=== PATIENT | male | born 1970 | race African-American/Black ===

== ENCOUNTER 2016-11-27 18:02 | Inpatient (IN) | payer OTHER ==
[~2016-11-27] VITALS: Ht 213.4 cm; Wt 104.5 kg
[~2016-11-27 18:02] MED LIST: ALL DAY ALLERGY10 M3 PO; AMBIEN10 MG PO; AMLODIPINE BESY10 MG PO; APRESOLINE10 MG PO; BACTRIM,SEPT1 TABLET PO; BISACODYL5 MG PO; CLEOCIN300 MG PO; COGENTIN0.5 MG PO; COLACE100 MG PO; COUMADIN,JANTO2.5 MG; CYCLOBENZAPRINE10 MG PO; DILAUDID1 MG/ML IV; DILAUDID2 MG PO; ENDOCET 5-3251 EACH PO; ESCITALOPRAM OX10 MG PO; ESCITALOPRAM OX20 MG PO; FENTANYL1 EAC5 TD; FOLIC ACID1 MG PO; GEODON40 MG PO; HEPARIN SO5000 UNITS SC; HYDRALAZINE HCL10 MG PO; ISOSORBIDE MONO30 MG PO; LEXAPRO10 MG PO; LOPRESSOR50 MG PO; LOSARTAN-HCTZ1 EAC1 PO; LOSARTAN-HCTZ1 EACH PO; LOVENOX40 MG/0.4 SC; LYRICA25 MG PO; LYRICA50 MG PO; LYRICA75 MG PO; MORPHINE SULFAT15 M1 PO; MULTIPLE VITAM1 EAC1 PO; NOHOMEMEDS; ONDANSETRON4 MG/2 ML IV; OXYCODONE H5 MG/5 ML PO; OXYCODONE HCL30 MG PO; OXYCODONE-APAP1 EACH PO; OXYCONTIN30 MG PO; PERCOCET 10/1 TABLET PO; PERCOCET 5/31 TABLET PO; PROMETHAZINE HC25 M1 PO; PROVENTIL HFA6.7 GM IH; QUETIAPINE FUM200 MG PO; QUETIAPINE FUM300 MG PO; QUETIAPINE FUMA50 MG PO; ROXICET 5-325500 ML PO; SANTYL30 GM TP; SENOKOT S,PE1 TABLET PO; SEROQUEL100 MG PO; SEROQUEL200 MG PO; SEROQUEL300 MG PO; SODIUM CHLOR1L 0.9 IV; THIAMINE HCL100 MG PO; TRAMADOL HCL50 MG PO; VITAMIN D5000 UNIT PO; WELLBUTRIN SR150 MG PO; ZESTRIL10 MG PO; ZOLPIDEM TARTRAT5 MG PO; bp med; morphine
[2016-11-27 18:56] LABS: HEMATOCRIT 42.9 % (38.0-50.0); MCH 32.2 PG (29.0-34.0); MCHC 34.5 G/DL (30.0-36.0); MCV 93.5 FL (86-99); MEAN PLAT.VOLUME 9.7 uM^3 (9.0-12.4); PLATELET COUNT 179 K/uL (156-360); RBC DIS.WIDTH-SD 41.2 % (39-53); RED BLOOD COUNT 4.59 M/uL (4.00-5.50); WHITE BLOOD COUNT 5.6 K/uL (4.1-10.2)
[2016-11-27 19:03] LABS: CHLORIDE 104 mEq/L (99-109); SODIUM 141 mEq/L (136-147)
[2016-11-27 19:04] LABS: GLUCOSE 75 mg/dL (70-99)
[2016-11-27 19:06] LABS: ANION GAP 22 MEQ/L (2-14)
[2016-11-27 19:08] LABS: GFR ESTIMATE (CALCULATED) > 59 mL/min/; SERUM ETHYL ALCOHOL 370 mg/dL
[2016-11-27 19:09] LABS: UREA NITROGEN (BUN) 13 mg/dL (9-23)
[2016-11-28 05:48] LABS: AMPHETAMINE NEGATIVE (500 ng/mL); BENZODIAZEPINES PRESUMPTIVE POSITIVE (150 ng/mL); COCAINE NEGATIVE (150 ng/mL); METHAMPHETAMINE NEGATIVE (500 ng/mL); OPIATES (MORPHINE) NEGATIVE (100 ng/mL); PHENCYCLIDINE NEGATIVE (25 ng/mL); THC CANNABINOIDS PRESUMPTIVE POSITIVE (50 ng/mL); TRICYCLIC ANTIDEPRESSANTS NEGATIVE (300 ng/mL)
[2016-11-28 05:49] LABS: ADD MEDTOX COMMENT Y; BARBITURATES NEGATIVE (200 ng/mL); INTERNAL CONTROLS VALID? YES; METHADONE NEGATIVE (200 ng/mL); OXYCODONE PRESUMPTIVE POSITIVE (100 ng/mL); PROPOXYPHENE NEGATIVE (300 ng/mL)
[2016-11-28 06:37] LABS: BENZODIAZEPINES QUANT VALUE 0 NG/ML; BENZODIAZEPINES, URINE SCREEN Negative (200 ng/mL)
[2016-11-28] MEDS ORDERED: PERCOCET 10/1 TABLET PO (09:44)
[2016-11-28] MEDS ORDERED: QUETIAPINE FUM300 MG PO (09:45)
[2016-11-28] MEDS ORDERED: ESCITALOPRAM OX20 MG PO (09:47)
[2016-11-28] MEDS ORDERED: LYRICA150 MG PO (09:48)
[2016-11-28 09:57] VITALS: BP 182/95
[2016-11-28 10:20] VITALS: BP 182/95
[2016-11-28 15:28] VITALS: BP 191/95
[2016-11-29 07:42] VITALS: BP 95/59
[2016-11-29 15:36] VITALS: BP 105/60
[2016-11-29 18:29] VITALS: BP 91/54
[2016-11-30 07:45] VITALS: BP 104/65
[2016-11-30 07:51] LABS: EOSINOPHIL (%) 0.7 % (0-5); HEMATOCRIT 35.6 % (38.0-50.0); IMMATURE GRANULOCYTE (%) 0.3 % (0.0-0.7); LYMPHOCYTE COUNT 1.4 K/uL (1.0-2.8); MCH 33.8 PG (29.0-34.0); MCHC 36.5 G/DL (30.0-36.0); MCV 92.5 FL (86-99); MONOCYTE (%) 11.4 % (3-12); MONOCYTE COUNT 0.7 K/uL (0-0.8); NEUTROPHIL (%) 64.9 % (45-76); RBC DIS.WIDTH-CV 11.8 % (11.8-14.6); RBC DIS.WIDTH-SD 39.6 % (39-53); RED BLOOD COUNT 3.85 M/uL (4.00-5.50); WHITE BLOOD COUNT 6.1 K/uL (4.1-10.2)
[2016-11-30 07:52] LABS: MEAN PLAT.VOLUME 10.2 uM^3 (9.0-12.4); PLAT.SUFFICIENCY DECREASED; PLATELET COUNT 90 K/uL (156-360)
[2016-11-30 08:17] LABS: ANION GAP 10 MEQ/L (2-14); CHLORIDE 95 MEQ/L (99-109); DIRECT BILIRUBIN 0.3 mg/dL (0.0-0.3); POTASSIUM 3.8 MEQ/L (3.7-5.4); SAMPLE HEMOLYSIS CHECK 0; SAMPLE ICTERIC CHECK 0; SAMPLE LIPEMIA CHECK 0; TOTAL BILIRUBIN 1.5 MG/DL (0.0-1.0)
[2016-11-30 08:23] LABS: ALKALINE PHOSPHATASE 67 IU/L (3-129); GFR ESTIMATE (CALCULATED) 38 mL/min/; GLUCOSE 135 mg/dL (70-99); SODIUM 131 MEQ/L (136-147); UREA NITROGEN (BUN) 26 mg/dL (9-23)
[2016-11-30 15:14] VITALS: BP 124/65
[2016-11-30 21:57] LABS: POINT-OF-CARE METER ID UU14188576; POINT-OF-CARE USER ID BHSMEW
[2016-11-30 23:14] LABS: ALKALINE PHOSPHATASE 59 IU/L (3-129); ANION GAP 8 MEQ/L (2-14); CHLORIDE 101 MEQ/L (99-109); GFR ESTIMATE (CALCULATED) 50 mL/min/; GLUCOSE 138 mg/dL (70-99); POTASSIUM 3.8 MEQ/L (3.7-5.4); SAMPLE HEMOLYSIS CHECK 0; SAMPLE ICTERIC CHECK 0; SAMPLE LIPEMIA CHECK 0; SODIUM 135 MEQ/L (136-147); UREA NITROGEN (BUN) 24 mg/dL (9-23)
[2016-12-01 00:47] LABS: TROP-I INTERPRETATION NEGATIVE; TROPONIN-I 0.01 ng/mL (0.0-0.30)
[2016-12-01 03:11] LABS: HEMATOCRIT 35.2 % (38.0-50.0); MCH 33.7 PG (29.0-34.0); MCHC 35.5 G/DL (30.0-36.0); MCV 94.9 FL (86-99); RBC DIS.WIDTH-SD 41.1 % (39-53); RED BLOOD COUNT 3.71 M/uL (4.00-5.50); WHITE BLOOD COUNT 6.8 K/uL (4.1-10.2)
[2016-12-01 03:41] LABS: IMM.PLATELET FRACTION 5.7 (1-7)
[2016-12-01 03:43] LABS: MEAN PLAT.VOLUME 13.5 uM^3 (9.0-12.4); PLAT.SUFFICIENCY VERY DECREASED
[2016-12-01 03:44] LABS: PLATELET COUNT 10 K/uL (156-360)
[2016-12-02] MEDS ORDERED: LOPRESSOR50 MG PO (11:47)
[2016-12-02] MEDS ORDERED: FOLIC ACID1 MG PO (11:47)
[2016-12-02] MEDS ORDERED: BUPROPION HCL100 M1 PO (11:47)
[2016-12-02] MEDS ORDERED: Thiamine,Vitamin B1 PO (11:48)
== END 2016-12-01 00:05 | DRG 881 ==
LOC: EME 18:02 → 1WEST 11-28 06:12 → EDOF 11-28 06:12 → ENRESERV 11-28 09:26 → 1WEST 11-28 09:54
PROVIDERS: Hospitalist; Psychiatry & Neurology Psychiatry
DX: F32.9 Major depressive disorder, single episode, unspecified (principal); G92 Toxic encephalopathy; F10.232 Alcohol dependence with withdrawal with perceptual disturbance; F10.231 Alcohol dependence with withdrawal delirium; F10.221 Alcohol dependence with intoxication delirium; E87.2 Acidosis; F11.20 Opioid dependence, uncomplicated; N17.9 Acute kidney failure, unspecified; E87.1 Hypo-osmolality and hyponatremia; I95.2 Hypotension due to drugs; Y90.8 Blood alcohol level of 240 mg/100 ml or more; R45.851 Suicidal ideations; F60.9 Personality disorder, unspecified; I11.9 Hypertensive heart disease without heart failure; D57.3 Sickle-cell trait; J45.909 Unspecified asthma, uncomplicated; F17.210 Nicotine dependence, cigarettes, uncomplicated; Z59.0 Homelessness; I25.2 Old myocardial infarction; Z95.1 Presence of aortocoronary bypass graft; Z86.73 Personal history of transient ischemic attack (TIA), and cerebral infarction without residual deficits; Z89.512 Acquired absence of left leg below knee; Z86.14 Personal history of Methicillin resistant Staphylococcus aureus infection
CPT/HCPCS: 70450; 71010; 72125; 80048; 80053; 80076; 82140; 82948; 83605; 84484; 84999; 85025; 85027; 87040; 90837; 99281; 99285; G0480; J1630; J2060; J7030

== ENCOUNTER 2016-11-30 21:58 | Inpatient (IN) | payer OTHER ==
[~2016-11-30] VITALS: Ht 182.9 cm; Wt 85.3 kg
[~2016-11-30 21:58] MED LIST changes: +LYRICA150 MG PO
[2016-12-01 01:56] VITALS: BP 125/83
[2016-12-01 03:38] VITALS: BP 126/74
[2016-12-01 03:41] LABS: METH RESISTANT S AUREUS PCR NEGATIVE (NEGATIVE)
[2016-12-01 03:42] LABS: PROBE CHECK PASS; SPECIMEN PROCESSING CONTROL PASS
[2016-12-01 06:01] LABS: INTER. NORMALIZED RATIO 1.1; PROTHROMBIN TIME 11.6 SEC (10.2-12.9)
[2016-12-01 06:03] LABS: PTT 29.1 SEC (25-37)
[2016-12-01 06:20] LABS: ADD MIUA? YES; BILIRUBIN NEGATIVE; BLOOD SMALL; COLOR YELLOW ((YELLOW)); GLUCOSE (STRIP) NEGATIVE; KETONES NEGATIVE; LEUKOCYTES NEGATIVE; NITRITE NEGATIVE; PROTEIN (STRIP) NEGATIVE
[2016-12-01 06:25] LABS: BACTERIA NONE SEEN /HPF; EPITHELIAL CELLS RARE /HPF; MUCUS NONE SEEN /LPF; RED BLOOD CELLS 0-5 /HPF (0-5); WHITE BLOOD CELLS 0-5 /HPF (0-5)
[2016-12-01 06:29] LABS: ALKALINE PHOSPHATASE 63 IU/L (3-129); ANION GAP 5 MEQ/L (2-14); CHLORIDE 105 MEQ/L (99-109); DIRECT BILIRUBIN 0.3 mg/dL (0.0-0.3); POTASSIUM 3.9 MEQ/L (3.7-5.4); SAMPLE HEMOLYSIS CHECK 0; SAMPLE ICTERIC CHECK 0; SAMPLE LIPEMIA CHECK 0; SODIUM 141 MEQ/L (136-147); UREA NITROGEN (BUN) 21 mg/dL (9-23)
[2016-12-01 06:31] LABS: GFR ESTIMATE (CALCULATED) > 59 mL/min/; GLUCOSE 91 mg/dL (70-99); TOTAL BILIRUBIN 1.3 MG/DL (0.0-1.0)
[2016-12-01 06:47] LABS: EOSINOPHIL (%) 1.2 % (0-5); EOSINOPHIL COUNT 0.1 K/uL (0-0.3); HEMATOCRIT 38.2 % (38.0-50.0); IMMATURE GRANULOCYTE (%) 0.4 % (0.0-0.7); INSTRUMENT ABS NEUTROPHIL CT 5.2 K/uL; LYMPHOCYTE COUNT 2.7 K/uL (1.0-2.8); MCH 32.8 PG (29.0-34.0); MCHC 34.6 G/DL (30.0-36.0); MCV 94.8 FL (86-99); MONOCYTE COUNT 0.8 K/uL (0-0.8); NEUTROPHIL COUNT 5.2 K/uL (1.8-6.4); RBC DIS.WIDTH-CV 11.9 % (11.8-14.6); RBC DIS.WIDTH-SD 41.3 % (39-53); RED BLOOD COUNT 4.03 M/uL (4.00-5.50); WHITE BLOOD COUNT 8.9 K/uL (4.1-10.2)
[2016-12-01 06:52] LABS: MEAN PLAT.VOLUME 11.1 uM^3 (9.0-12.4); PLATELET COUNT 99 K/uL (156-360)
[2016-12-01 09:46] LABS: MAGNESIUM 1.8 mg/dl (1.3-2.7)
[2016-12-01 11:54] VITALS: BP 128/72
[2016-12-01 16:03] VITALS: BP 145/90
[2016-12-01 20:00] VITALS: BP 137/78
[2016-12-02 00:38] VITALS: BP 112/88
[2016-12-02 04:08] VITALS: BP 123/81
[2016-12-02 06:08] LABS: BASOPHIL COUNT 0.1 K/uL (0-0.1); EOSINOPHIL (%) 2.6 % (0-5); EOSINOPHIL COUNT 0.1 K/uL (0-0.3); HEMATOCRIT 31.9 % (38.0-50.0); IMMATURE GRANULOCYTE (%) 0.2 % (0.0-0.7); LYMPHOCYTE COUNT 2.6 K/uL (1.0-2.8); MCH 34.3 PG (29.0-34.0); MCHC 35.7 G/DL (30.0-36.0); MCV 96.1 FL (86-99); MEAN PLAT.VOLUME 11.8 uM^3 (9.0-12.4); MONOCYTE (%) 11.5 % (3-12); MONOCYTE COUNT 0.6 K/uL (0-0.8); PLATELET COUNT 92 K/uL (156-360); RBC DIS.WIDTH-CV 12.1 % (11.8-14.6); RBC DIS.WIDTH-SD 42.5 % (39-53); RED BLOOD COUNT 3.32 M/uL (4.00-5.50); WHITE BLOOD COUNT 5.5 K/uL (4.1-10.2)
[2016-12-02 06:53] LABS: ALKALINE PHOSPHATASE 51 IU/L (3-129); ANION GAP 7 MEQ/L (2-14); CHLORIDE 106 MEQ/L (99-109); GLUCOSE 98 mg/dL (70-99); POTASSIUM 3.8 MEQ/L (3.7-5.4); SAMPLE HEMOLYSIS CHECK 0; SAMPLE ICTERIC CHECK 0; SAMPLE LIPEMIA CHECK 0; SODIUM 140 MEQ/L (136-147); UREA NITROGEN (BUN) 10 mg/dL (9-23)
[2016-12-02 06:56] LABS: GFR ESTIMATE (CALCULATED) > 59 mL/min/; TOTAL BILIRUBIN 0.7 MG/DL (0.0-1.0)
[2016-12-02 07:36] VITALS: BP 145/93
[2016-12-02] MEDS ORDERED: FOLIC ACID1 MG PO (11:47)
[2016-12-02] MEDS ORDERED: BUPROPION HCL100 M1 PO (11:47)
[2016-12-02] MEDS ORDERED: LOPRESSOR50 MG PO (11:47)
[2016-12-02] MEDS ORDERED: Thiamine,Vitamin B1 PO (11:48)
[2016-12-02 15:12] VITALS: BP 138/91
== END 2016-12-02 17:22 | DRG 314 ==
LOC: 5SOUTH 21:58 → ENRESERV 21:58 → 5SOUTH 22:50
PROVIDERS: Hospitalist
DX: I95.9 Hypotension, unspecified (principal); R55 Syncope and collapse; F32.9 Major depressive disorder, single episode, unspecified; R41.82 Altered mental status, unspecified; G93.40 Encephalopathy, unspecified; E86.1 Hypovolemia; R45.851 Suicidal ideations; Y92.230 Patient room in hospital as the place of occurrence of the external cause; I51.7 Cardiomegaly; I11.9 Hypertensive heart disease without heart failure; D57.3 Sickle-cell trait; M86.9 Osteomyelitis, unspecified; L03.119 Cellulitis of unspecified part of limb; F11.20 Opioid dependence, uncomplicated; B96.5 Pseudomonas (aeruginosa) (mallei) (pseudomallei) as the cause of diseases classified elsewhere; F17.210 Nicotine dependence, cigarettes, uncomplicated; N17.9 Acute kidney failure, unspecified; E87.1 Hypo-osmolality and hyponatremia; Y90.8 Blood alcohol level of 240 mg/100 ml or more; R79.89 Other specified abnormal findings of blood chemistry; T21.04XA Burn of unspecified degree of lower back, initial encounter; Z89.512 Acquired absence of left leg below knee; F10.239 Alcohol dependence with withdrawal, unspecified; D69.6 Thrombocytopenia, unspecified; G89.4 Chronic pain syndrome; Z86.73 Personal history of transient ischemic attack (TIA), and cerebral infarction without residual deficits; I25.2 Old myocardial infarction; Z86.718 Personal history of other venous thrombosis and embolism; Z59.0 Homelessness; Z88.6 Allergy status to analgesic agent; F33.9 Major depressive disorder, recurrent, unspecified
CPT/HCPCS: 76705; 80048 91; 80053; 80076; 81003; 83735; 84484; 85025; 85027; 85610; 85730; 86850; 86900; 86901; 87081; 87641; 93005; 94010; 94760; 99202; J1650; J7030; J7120

== ENCOUNTER 2016-12-02 13:15 | Inpatient (IN) | payer OTHER ==
[~2016-12-02] VITALS: Ht 182.9 cm; Wt 85.3 kg
[~2016-12-02 13:15] MED LIST changes: +BUPROPION HCL100 M1 PO; +Thiamine,Vitamin B1 PO
[2016-12-02 17:38] VITALS: BP 154/97
[2016-12-02 18:06] VITALS: BP 154/97
[2016-12-03 07:43] VITALS: BP 159/86
[2016-12-03 15:53] VITALS: BP 165/100
[2016-12-04 07:46] VITALS: BP 150/86
[2016-12-04] MEDS ORDERED: KETOROLAC TROME10 MG PO (09:07)
[2016-12-04] MEDS ORDERED: AMITRIPTYLINE H50 MG PO (09:07)
[2016-12-04] MEDS ORDERED: LOPRESSOR50 MG PO (09:07)
[2016-12-04] MEDS ORDERED: LYRICA50 MG PO (09:07)
== END 2016-12-04 11:39 | disposition home or self-care (01) | DRG 885 ==
LOC: 1WEST 13:15 → ENRESERV 13:16 → 1WEST 13:17
DX: F33.2 Major depressive disorder, recurrent severe without psychotic features (principal); F10.20 Alcohol dependence, uncomplicated; R45.851 Suicidal ideations; Z59.0 Homelessness; Z89.512 Acquired absence of left leg below knee; G89.29 Other chronic pain
CPT/HCPCS: 97165 GO

== ENCOUNTER 2016-12-11 12:38 | Inpatient (IN) | payer OTHER ==
[~2016-12-11] VITALS: Ht 213.4 cm; Wt 76.0 kg
[~2016-12-11 12:38] MED LIST changes: +AMITRIPTYLINE H50 MG PO; +KETOROLAC TROME10 MG PO
[2016-12-11 13:45] LABS: CHLORIDE 101 mEq/L (99-109); POTASSIUM 4.1 mEq/L (3.7-5.4); SODIUM 140 mEq/L (136-147)
[2016-12-11 13:47] LABS: GLUCOSE 94 mg/dL (70-99)
[2016-12-11 13:48] LABS: ANION GAP 18 MEQ/L (2-14)
[2016-12-11 13:49] LABS: TOTAL BILIRUBIN 0.7 mg/dL (0.0-1.0)
[2016-12-11 13:50] LABS: SERUM ETHYL ALCOHOL 288 mg/dL
[2016-12-11 13:51] LABS: ALKALINE PHOSPHATASE 106 IU/L (3-129); GFR ESTIMATE (CALCULATED) > 59 mL/min/
[2016-12-11 13:52] LABS: UREA NITROGEN (BUN) 8 mg/dL (9-23)
[2016-12-11 13:54] LABS: HEMATOCRIT 36.2 % (38.0-50.0); MCV 94.5 FL (86-99); RBC DIS.WIDTH-CV 12.1 % (11.8-14.6); RBC DIS.WIDTH-SD 41.8 % (39-53); RED BLOOD COUNT 3.83 M/uL (4.00-5.50); WHITE BLOOD COUNT 9.4 K/uL (4.1-10.2)
[2016-12-11 13:58] LABS: MEAN PLAT.VOLUME 9.8 uM^3 (9.0-12.4); PLATELET COUNT 308 K/uL (156-360)
[2016-12-11 18:51] LABS: ADD MIUA? NO; BILIRUBIN NEGATIVE; BLOOD NEGATIVE; COLOR YELLOW ((YELLOW)); GLUCOSE (STRIP) 50; KETONES 5; LEUKOCYTES NEGATIVE; NITRITE NEGATIVE; PROTEIN (STRIP) 30; SPECIFIC GRAVITY 1.019 (1.000-1.030)
[2016-12-11 19:02] LABS: AMPHETAMINE NEGATIVE (500 ng/mL); BARBITURATES NEGATIVE (200 ng/mL); BENZODIAZEPINES PRESUMPTIVE POSITIVE (150 ng/mL); COCAINE PRESUMPTIVE POSITIVE (150 ng/mL); METHADONE NEGATIVE (200 ng/mL); METHAMPHETAMINE NEGATIVE (500 ng/mL); OPIATES (MORPHINE) PRESUMPTIVE POSITIVE (100 ng/mL); PHENCYCLIDINE NEGATIVE (25 ng/mL); THC CANNABINOIDS PRESUMPTIVE POSITIVE (50 ng/mL); TRICYCLIC ANTIDEPRESSANTS NEGATIVE (300 ng/mL)
[2016-12-11 19:03] LABS: ADD MEDTOX COMMENT Y; INTERNAL CONTROLS VALID? YES; OXYCODONE PRESUMPTIVE POSITIVE (100 ng/mL); PROPOXYPHENE NEGATIVE (300 ng/mL)
[2016-12-11 19:30] LABS: BENZODIAZEPINES, URINE SCREEN POSITIVE (200 ng/mL)
[2016-12-12 15:23] VITALS: BP 159/87
[2016-12-12 16:48] VITALS: BP 159/87
[2016-12-13 08:01] VITALS: BP 166/91
[2016-12-13 15:54] VITALS: BP 118/66
[2016-12-14 07:31] VITALS: BP 157/78
[2016-12-14 15:52] VITALS: BP 145/89
[2016-12-14 17:18] LABS: C DIFF TOXIN NEGATIVE (NEGATIVE)
[2016-12-14 17:26] LABS: PROBE CHECK PASS; SPECIMEN PROCESSING CONTROL PASS
[2016-12-15 07:46] VITALS: BP 163/92
[2016-12-15 10:54] VITALS: BP 145/89
[2016-12-15 15:13] VITALS: BP 138/95
[2016-12-16 07:54] VITALS: BP 169/104
[2016-12-16] MEDS ORDERED: LYRICA75 MG PO (09:44)
[2016-12-16] MEDS ORDERED: Thiamine,Vitamin B1 PO (09:44)
[2016-12-16] MEDS ORDERED: LOPRESSOR25 MG PO (09:44)
[2016-12-16] MEDS ORDERED: AMITRIPTYLINE100 MG PO (09:44)
[2016-12-16] MEDS ORDERED: QUETIAPINE FUM100 MG PO (09:44)
[2016-12-16] MEDS ORDERED: QUETIAPINE FUM300 MG PO (09:44)
[2016-12-16] MEDS ORDERED: KETOROLAC TROME10 MG PO (09:44)
[2016-12-16 10:28] VITALS: BP 195/96
== END 2016-12-16 10:30 | disposition home or self-care (01) | DRG 885 ==
LOC: EME 12:38 → 1WEST 12-12 10:54 → EDOF 12-12 10:54 → ENRESERV 12-12 13:05 → 1WEST 12-12 15:22
PROVIDERS: Emergency Medicine; Psychiatry & Neurology Psychiatry
DX: F33.2 Major depressive disorder, recurrent severe without psychotic features (principal); F10.229 Alcohol dependence with intoxication, unspecified; Y90.8 Blood alcohol level of 240 mg/100 ml or more; R45.851 Suicidal ideations; G89.4 Chronic pain syndrome; S80.212A Abrasion, left knee, initial encounter; V03.10XA Pedestrian on foot injured in collision with car, pick-up truck or van in traffic accident, initial encounter; F43.23 Adjustment disorder with mixed anxiety and depressed mood; Z59.0 Homelessness; I10 Essential (primary) hypertension; J45.909 Unspecified asthma, uncomplicated; I25.2 Old myocardial infarction; D57.3 Sickle-cell trait; F19.10 Other psychoactive substance abuse, uncomplicated; F17.210 Nicotine dependence, cigarettes, uncomplicated; Z86.73 Personal history of transient ischemic attack (TIA), and cerebral infarction without residual deficits; Z89.512 Acquired absence of left leg below knee; Z95.1 Presence of aortocoronary bypass graft; Z86.14 Personal history of Methicillin resistant Staphylococcus aureus infection
CPT/HCPCS: 71020; 80053; 81003; 82140; 84999; 85027; 87493; 90837; 97150 GO; 97165 GO; 99281; 99285; G0480; Q0177

== ENCOUNTER 2016-12-23 11:48 | Emergency (ER) | payer OTHER ==
[~2016-12-23] VITALS: Ht 213.4 cm; Wt 81.4 kg
[~2016-12-23 11:48] MED LIST changes: +AMITRIPTYLINE100 MG PO; +LOPRESSOR25 MG PO; +QUETIAPINE FUM100 MG PO
[2016-12-23 13:00] LABS: ADD MIUA? NO; BILIRUBIN NEGATIVE; BLOOD NEGATIVE; COLOR YELLOW ((YELLOW)); GLUCOSE (STRIP) NEGATIVE; KETONES 5; LEUKOCYTES NEGATIVE; NITRITE NEGATIVE; PROTEIN (STRIP) 30; SPECIFIC GRAVITY 1.009 (1.000-1.030); UROBILINOGEN 0.2 MG/DL (0.2-1.0)
[2016-12-23 13:10] LABS: AMPHETAMINE NEGATIVE (500 ng/mL); BENZODIAZEPINES PRESUMPTIVE POSITIVE (150 ng/mL); COCAINE PRESUMPTIVE POSITIVE (150 ng/mL); METHAMPHETAMINE NEGATIVE (500 ng/mL); OPIATES (MORPHINE) NEGATIVE (100 ng/mL); PHENCYCLIDINE NEGATIVE (25 ng/mL); THC CANNABINOIDS PRESUMPTIVE POSITIVE (50 ng/mL)
[2016-12-23 13:11] LABS: ADD MEDTOX COMMENT Y; BARBITURATES NEGATIVE (200 ng/mL); INTERNAL CONTROLS VALID? YES; METHADONE NEGATIVE (200 ng/mL); OXYCODONE PRESUMPTIVE POSITIVE (100 ng/mL); PROPOXYPHENE NEGATIVE (300 ng/mL); TRICYCLIC ANTIDEPRESSANTS NEGATIVE (300 ng/mL)
[2016-12-23 13:41] LABS: BENZODIAZEPINES, URINE SCREEN POSITIVE (200 ng/mL)
[2016-12-23 14:32] LABS: HEMATOCRIT 39.4 % (38.0-50.0); MCH 32.9 PG (29.0-34.0); RBC DIS.WIDTH-CV 12.1 % (11.8-14.6); RBC DIS.WIDTH-SD 41.7 % (39-53); RED BLOOD COUNT 4.19 M/uL (4.00-5.50); WHITE BLOOD COUNT 9.1 K/uL (4.1-10.2)
[2016-12-23 14:46] LABS: CHLORIDE 104 mEq/L (99-109); POTASSIUM 4.4 mEq/L (3.7-5.4); SODIUM 142 mEq/L (136-147)
[2016-12-23 14:48] LABS: GLUCOSE 92 mg/dL (70-99)
[2016-12-23 14:49] LABS: ANION GAP 18 MEQ/L (2-14)
[2016-12-23 14:51] LABS: GFR ESTIMATE (CALCULATED) > 59 mL/min/; SERUM ETHYL ALCOHOL 211 mg/dL
[2016-12-23 14:52] LABS: UREA NITROGEN (BUN) 14 mg/dL (9-23)
[2016-12-23 15:25] LABS: BASOPHIL COUNT 0.1 K/uL (0-0.1); EOSINOPHIL (%) 0.3 % (0-5); IMMATURE GRANULOCYTE (%) 0.2 % (0.0-0.7); INSTRUMENT ABS NEUTROPHIL CT 5.3 K/uL; LYMPHOCYTE COUNT 3.1 K/uL (1.0-2.8); MEAN PLAT.VOLUME 10.1 uM^3 (9.0-12.4); MONOCYTE (%) 6.8 % (3-12); MONOCYTE COUNT 0.6 K/uL (0-0.8); NEUTROPHIL (%) 57.4 % (45-76); NEUTROPHIL COUNT 5.3 K/uL (1.8-6.4); PLAT.SUFFICIENCY ADEQUATE
[2016-12-23 15:27] LABS: PLATELET COUNT 206 K/uL (156-360)
[2016-12-23 20:03] VITALS: BP 142/86
== END 2016-12-23 20:09 | disposition home or self-care (01) ==
LOC: EME 11:48
PROVIDERS: Emergency Medicine
DX: F10.129 Alcohol abuse with intoxication, unspecified (principal); F19.10 Other psychoactive substance abuse, uncomplicated; Y90.7 Blood alcohol level of 200-239 mg/100 ml; F32.9 Major depressive disorder, single episode, unspecified; F41.9 Anxiety disorder, unspecified; I10 Essential (primary) hypertension; J45.909 Unspecified asthma, uncomplicated; I25.2 Old myocardial infarction; Z95.1 Presence of aortocoronary bypass graft; Z86.73 Personal history of transient ischemic attack (TIA), and cerebral infarction without residual deficits; D57.3 Sickle-cell trait; Z86.718 Personal history of other venous thrombosis and embolism; Z89.512 Acquired absence of left leg below knee; F17.200 Nicotine dependence, unspecified, uncomplicated; Z59.0 Homelessness
CPT/HCPCS: 70450; 80048; 81003; 84999; 85025; 90839; 99281; 99285; G0480; J1630; J2060

== ENCOUNTER 2017-02-01 19:00 | Emergency (ER) | payer OTHER ==
[~2017-02-01] VITALS: Ht 213.4 cm; Wt 85.3 kg
[~2017-02-01 19:00] MED LIST changes: +APRESOLINE25 MG PO
[2017-02-01 21:28] LABS: ADD MIUA? YES; BILIRUBIN NEGATIVE; BLOOD NEGATIVE; COLOR YELLOW ((YELLOW)); GLUCOSE (STRIP) 50; KETONES NEGATIVE; LEUKOCYTES NEGATIVE; NITRITE NEGATIVE; PROTEIN (STRIP) NEGATIVE; SPECIFIC GRAVITY 1.021 (1.000-1.030)
[2017-02-01 21:35] LABS: BACTERIA NONE SEEN /HPF; EPITHELIAL CELLS 1+ /HPF; MUCUS TRACE /LPF; RED BLOOD CELLS 0-5 /HPF (0-5); UCUL ADDED? NO; WHITE BLOOD CELLS 0-5 /HPF (0-5)
[2017-02-01 21:39] LABS: ADD MEDTOX COMMENT Y; AMPHETAMINE NEGATIVE (500 ng/mL); BARBITURATES NEGATIVE (200 ng/mL); BENZODIAZEPINES PRESUMPTIVE POSITIVE (150 ng/mL); COCAINE NEGATIVE (150 ng/mL); INTERNAL CONTROLS VALID? YES; METHADONE NEGATIVE (200 ng/mL); METHAMPHETAMINE NEGATIVE (500 ng/mL); OPIATES (MORPHINE) NEGATIVE (100 ng/mL); OXYCODONE PRESUMPTIVE POSITIVE (100 ng/mL); PHENCYCLIDINE NEGATIVE (25 ng/mL); PROPOXYPHENE NEGATIVE (300 ng/mL); THC CANNABINOIDS PRESUMPTIVE POSITIVE (50 ng/mL); TRICYCLIC ANTIDEPRESSANTS NEGATIVE (300 ng/mL)
[2017-02-01 22:14] LABS: BENZODIAZEPINES QUANT VALUE 0 NG/ML; BENZODIAZEPINES, URINE SCREEN Negative (200 ng/mL)
[2017-02-01 22:40] LABS: HEMATOCRIT 37.2 % (38.0-50.0); MCH 33.9 PG (29.0-34.0); MCHC 35.8 G/DL (30.0-36.0); MCV 94.9 FL (86-99); MEAN PLAT.VOLUME 9.8 uM^3 (9.0-12.4); PLATELET COUNT 157 K/uL (156-360); RBC DIS.WIDTH-CV 12.2 % (11.8-14.6); RBC DIS.WIDTH-SD 42.9 % (39-53); RED BLOOD COUNT 3.92 M/uL (4.00-5.50); WHITE BLOOD COUNT 6.2 K/uL (4.1-10.2)
[2017-02-01 22:48] LABS: CHLORIDE 102 mEq/L (99-109); POTASSIUM 3.6 mEq/L (3.7-5.4); SODIUM 135 mEq/L (136-147)
[2017-02-01 22:49] LABS: GLUCOSE 115 mg/dL (70-99)
[2017-02-01 22:51] LABS: ANION GAP 9 MEQ/L (2-14)
[2017-02-01 22:53] LABS: GFR ESTIMATE (CALCULATED) > 59 mL/min/
[2017-02-01 22:54] LABS: UREA NITROGEN (BUN) 11 mg/dL (9-23)
[2017-02-01 23:36] VITALS: BP 189/91
[2017-02-02 01:28] LABS: C-REACTIVE PROTEIN 4.8 MG/L (0-10); SAMPLE HEMOLYSIS CHECK 0; SAMPLE ICTERIC CHECK 0; SAMPLE LIPEMIA CHECK 0
== END 2017-02-01 23:36 | disposition home or self-care (01) ==
LOC: EME 19:00
PROVIDERS: Nurse Practitioner Family; Physician Assistant
DX: R10.32 Left lower quadrant pain (principal); R20.0 Anesthesia of skin; Z89.512 Acquired absence of left leg below knee; J45.909 Unspecified asthma, uncomplicated; I10 Essential (primary) hypertension; I25.2 Old myocardial infarction; F41.9 Anxiety disorder, unspecified; F32.9 Major depressive disorder, single episode, unspecified; F31.9 Bipolar disorder, unspecified; Z86.718 Personal history of other venous thrombosis and embolism; Z86.711 Personal history of pulmonary embolism; Z86.14 Personal history of Methicillin resistant Staphylococcus aureus infection; Z86.73 Personal history of transient ischemic attack (TIA), and cerebral infarction without residual deficits; Z95.1 Presence of aortocoronary bypass graft; F17.200 Nicotine dependence, unspecified, uncomplicated; Z88.5 Allergy status to narcotic agent; Z88.8 Allergy status to other drugs, medicaments and biological substances
CPT/HCPCS: 80048; 81003; 84999; 85027; 86140; 93971; 99281; 99284

== ENCOUNTER 2017-02-06 16:29 | Emergency (ER) | payer OTHER ==
[~2017-02-06] VITALS: Ht 182.9 cm; Wt 81.0 kg
[2017-02-06 18:52] LABS: BASOPHIL COUNT 0.1 K/uL (0-0.1); EOSINOPHIL (%) 1.4 % (0-5); EOSINOPHIL COUNT 0.1 K/uL (0-0.3); HEMATOCRIT 38.5 % (38.0-50.0); IMMATURE GRANULOCYTE (%) 0.3 % (0.0-0.7); INSTRUMENT ABS NEUTROPHIL CT 2.5 K/uL; LYMPHOCYTE COUNT 3.2 K/uL (1.0-2.8); MCH 33.5 PG (29.0-34.0); MCHC 35.1 G/DL (30.0-36.0); MCV 95.5 FL (86-99); MEAN PLAT.VOLUME 10.5 uM^3 (9.0-12.4); MONOCYTE (%) 8.2 % (3-12); MONOCYTE COUNT 0.5 K/uL (0-0.8); NEUTROPHIL COUNT 2.5 K/uL (1.8-6.4); RBC DIS.WIDTH-SD 42.7 % (39-53); RED BLOOD COUNT 4.03 M/uL (4.00-5.50); WHITE BLOOD COUNT 6.4 K/uL (4.1-10.2)
[2017-02-06 18:56] LABS: PLATELET COUNT 220 K/uL (156-360)
[2017-02-06 19:01] LABS: CHLORIDE 106 mEq/L (99-109); POTASSIUM 4.1 mEq/L (3.7-5.4); SODIUM 141 mEq/L (136-147)
[2017-02-06 19:03] LABS: GLUCOSE 128 mg/dL (70-99)
[2017-02-06 19:04] LABS: ANION GAP 12 MEQ/L (2-14)
[2017-02-06 19:05] LABS: TOTAL BILIRUBIN 0.4 mg/dL (0.0-1.0)
[2017-02-06 19:06] LABS: ALKALINE PHOSPHATASE 82 IU/L (3-129)
[2017-02-06 19:07] LABS: GFR ESTIMATE (CALCULATED) > 59 mL/min/
[2017-02-06 19:08] LABS: UREA NITROGEN (BUN) 16 mg/dL (9-23)
[2017-02-06 19:10] LABS: LIPASE 41 U/L (1.0-51.0)
[2017-02-06 20:42] LABS: ADD MIUA? NO; BILIRUBIN NEGATIVE; BLOOD NEGATIVE; COLOR YELLOW ((YELLOW)); GLUCOSE (STRIP) 50; KETONES NEGATIVE; LEUKOCYTES NEGATIVE; NITRITE NEGATIVE; PROTEIN (STRIP) NEGATIVE; SPECIFIC GRAVITY 1.017 (1.000-1.030); UROBILINOGEN 0.2 MG/DL (0.2-1.0)
[2017-02-06 21:53] VITALS: BP 183/104
== END 2017-02-06 21:54 | disposition home or self-care (01) ==
LOC: EME 16:29
PROVIDERS: Physician Assistant
DX: S39.011A Strain of muscle, fascia and tendon of abdomen, initial encounter (principal); W19.XXXA Unspecified fall, initial encounter; Z89.512 Acquired absence of left leg below knee; J45.909 Unspecified asthma, uncomplicated; I25.2 Old myocardial infarction; F41.9 Anxiety disorder, unspecified; F32.9 Major depressive disorder, single episode, unspecified; F31.9 Bipolar disorder, unspecified; F17.200 Nicotine dependence, unspecified, uncomplicated; Z86.711 Personal history of pulmonary embolism; Z86.718 Personal history of other venous thrombosis and embolism; Z95.1 Presence of aortocoronary bypass graft; Z86.73 Personal history of transient ischemic attack (TIA), and cerebral infarction without residual deficits; Z86.14 Personal history of Methicillin resistant Staphylococcus aureus infection; Z88.5 Allergy status to narcotic agent; Z88.8 Allergy status to other drugs, medicaments and biological substances
CPT/HCPCS: 74177; 76870; 80053; 81003; 83690; 85025; 99281; 99285; J2405; J3010; J7030

== ENCOUNTER 2017-03-05 14:27 | Inpatient (IN) | payer OTHER ==
[~2017-03-05] VITALS: Ht 213.4 cm; Wt 120.1 kg
[2017-03-05 15:44] LABS: HEMATOCRIT 43.3 % (38.0-50.0); MCH 33.7 PG (29.0-34.0); MCHC 35.3 G/DL (30.0-36.0); MCV 95.4 FL (86-99); RBC DIS.WIDTH-CV 12.1 % (11.8-14.6); RBC DIS.WIDTH-SD 42.3 % (39-53); RED BLOOD COUNT 4.54 M/uL (4.00-5.50); WHITE BLOOD COUNT 5.7 K/uL (4.1-10.2)
[2017-03-05 15:50] LABS: CHLORIDE 107 mEq/L (99-109); POTASSIUM 3.8 mEq/L (3.7-5.4); SODIUM 142 mEq/L (136-147)
[2017-03-05 15:52] LABS: GLUCOSE 92 mg/dL (70-99)
[2017-03-05 15:54] LABS: ANION GAP 18 MEQ/L (2-14)
[2017-03-05 15:55] LABS: SERUM ETHYL ALCOHOL 308 mg/dL
[2017-03-05 15:56] LABS: GFR ESTIMATE (CALCULATED) > 59 mL/min/ (58.99-99999)
[2017-03-05 15:58] LABS: UREA NITROGEN (BUN) 7 mg/dL (9-23)
[2017-03-05 15:59] LABS: SALICYLATE < 5.0 MG/DL (15-30)
[2017-03-05 16:21] LABS: MEAN PLAT.VOLUME 11.9 uM^3 (9.0-12.4); PLAT.SUFFICIENCY DECREASED
[2017-03-05 16:22] LABS: PLATELET COUNT 138 K/uL (156-360)
[2017-03-06 09:03] LABS: COCAINE NEGATIVE (150 ng/mL); METHAMPHETAMINE NEGATIVE (500 ng/mL); OPIATES (MORPHINE) NEGATIVE (100 ng/mL); PHENCYCLIDINE NEGATIVE (25 ng/mL); THC CANNABINOIDS NEGATIVE (50 ng/mL)
[2017-03-06 09:04] LABS: ADD MEDTOX COMMENT Y; AMPHETAMINE NEGATIVE (500 ng/mL); BARBITURATES NEGATIVE (200 ng/mL); BENZODIAZEPINES PRESUMPTIVE POSITIVE (150 ng/mL); INTERNAL CONTROLS VALID? YES; METHADONE NEGATIVE (200 ng/mL); OXYCODONE PRESUMPTIVE POSITIVE (100 ng/mL); PROPOXYPHENE NEGATIVE (300 ng/mL); TRICYCLIC ANTIDEPRESSANTS NEGATIVE (300 ng/mL)
[2017-03-06 09:44] LABS: BENZODIAZEPINES QUANT VALUE 0 NG/ML; BENZODIAZEPINES, URINE SCREEN Negative (200 ng/mL)
[2017-03-06 13:19] VITALS: BP 177/111
[2017-03-06 13:20] VITALS: BP 177/111
[2017-03-06] MEDS ORDERED: LYRICA150 MG PO (13:41)
[2017-03-06 15:27] VITALS: BP 179/107
[2017-03-07 07:39] VITALS: BP 166/104
[2017-03-07 14:35] VITALS: BP 153/74
[2017-03-07 15:43] VITALS: BP 155/80
[2017-03-07 19:13] VITALS: BP 141/92
[2017-03-08 10:30] VITALS: BP 139/94
[2017-03-08 15:33] VITALS: BP 162/75
[2017-03-08 19:34] VITALS: BP 142/84
[2017-03-09 07:47] VITALS: BP 135/84
[2017-03-09 15:48] VITALS: BP 115/70
[2017-03-09 22:16] VITALS: BP 134/84
[2017-03-10 07:45] VITALS: BP 158/100
[2017-03-10] MEDS ORDERED: AMITRIPTYLINE100 MG PO (11:27)
[2017-03-10] MEDS ORDERED: CYMBALTA60 MG PO (11:27)
[2017-03-10] MEDS ORDERED: Thiamine,Vitamin B1 PO (11:27)
[2017-03-10] MEDS ORDERED: LYRICA75 MG PO (11:27)
[2017-03-10] MEDS ORDERED: QUETIAPINE FUM200 MG PO (11:27)
[2017-03-10] MEDS ORDERED: LYRICA150 MG PO (11:37)
== END 2017-03-10 15:20 | disposition home or self-care (01) | DRG 885 ==
LOC: EME → EDBD 14:27 → EDOF 03-06 10:29 → 1WEST 03-06 10:29 → EDOF 03-06 11:26 → ENRESERV 03-06 12:01 → 1WEST 03-06 13:09
PROVIDERS: Emergency Medicine
DX: F33.1 Major depressive disorder, recurrent, moderate (principal); R45.851 Suicidal ideations; I10 Essential (primary) hypertension; D57.3 Sickle-cell trait; F11.20 Opioid dependence, uncomplicated; I25.10 Atherosclerotic heart disease of native coronary artery without angina pectoris; G89.29 Other chronic pain; Z59.0 Homelessness; Z78.1 Physical restraint status; Z86.73 Personal history of transient ischemic attack (TIA), and cerebral infarction without residual deficits; Z91.14 Patient's other noncompliance with medication regimen; Z95.1 Presence of aortocoronary bypass graft; Z89.512 Acquired absence of left leg below knee; F10.220 Alcohol dependence with intoxication, uncomplicated; F10.230 Alcohol dependence with withdrawal, uncomplicated; Y90.8 Blood alcohol level of 240 mg/100 ml or more; I25.2 Old myocardial infarction; J45.909 Unspecified asthma, uncomplicated; F17.200 Nicotine dependence, unspecified, uncomplicated
CPT/HCPCS: 80048; 84999; 85027; 90837; 97150 GO; 97165 GO; 99281; 99285; G0480; J1630; J2060; Q0177

== ENCOUNTER 2017-09-25 22:01 | Emergency (ER) | payer OTHER ==
[~2017-09-25] VITALS: Ht 213.4 cm; Wt 87.6 kg
[~2017-09-25 22:01] MED LIST changes: +CYMBALTA60 MG PO
[2017-09-25] MEDS ORDERED: NARCAN4 MG NS (23:24)
[2017-09-26 00:02] VITALS: BP 145/103
== END 2017-09-26 00:03 | disposition home or self-care (01) ==
LOC: EME → EDBD 22:01 → EME 22:01
DX: F19.10 Other psychoactive substance abuse, uncomplicated (principal); F10.10 Alcohol abuse, uncomplicated; Z86.73 Personal history of transient ischemic attack (TIA), and cerebral infarction without residual deficits; J45.909 Unspecified asthma, uncomplicated; I25.2 Old myocardial infarction; Z95.1 Presence of aortocoronary bypass graft; Z88.8 Allergy status to other drugs, medicaments and biological substances; F17.200 Nicotine dependence, unspecified, uncomplicated
CPT/HCPCS: 71045; 99281; 99283; J2310